=== PATIENT | male | born 1960 | race Caucasian/White ===

== ENCOUNTER → 2017-01-13 | Outpatient (CLI) | payer OTHER ==
[~2017-01-13] VITALS: Ht 185.4 cm; Wt 97.5 kg
[~2017-01-13] MED LIST: ATORVASTATIN CA40 MG PO; HYDROCODONE-AP1 EAC6 PO; IBUPROFEN 200200 M1 PO
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
[2017-01-13 11:36] VITALS: BP 136/101
== END | disposition home or self-care (01) ==
LOC: PAIN 09:40
DX: M54.16 Radiculopathy, lumbar region (principal); Z98.890 Other specified postprocedural states; M48.06 Spinal stenosis, lumbar region

== ENCOUNTER → 2017-01-27 | Outpatient (CLI) | payer OTHER ==
[~2017-01-27] VITALS: Ht 185.4 cm; Wt 97.1 kg
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
[2017-01-27 10:04] VITALS: BP 160/94
== END | disposition home or self-care (01) ==
LOC: PAIN 06:54
DX: M54.16 Radiculopathy, lumbar region (principal); Z98.890 Other specified postprocedural states